=== PATIENT | female | born 2000 | race Caucasian/White ===

== ENCOUNTER 2019-11-07 15:43 | Emergency (ER) | payer OTHER ==
[~2019-11-07] VITALS: Ht 167.6 cm; Wt 81.1 kg
--- NOTE | 2019-11-07 16:42 | REP ---
Clinical: Right shoulder injury . Technique: Internal rotation, external rotation, and Y view. Findings: No acute fracture or dislocation. The acromioclavicular and glenohumeral joints are intact. No periarticular calcifications or degenerative changes are appreciated. Sub acromial space is normal. Surrounding soft tissues are unremarkable. Impression: Normal right shoulder radiographs. Electronically Signed by Rene Navarrete MD 11/07/2019 04:34 P
[2019-11-07] MEDS ORDERED: NAPR-837 PO (18:12)
[2019-11-07 18:16] VITALS: BP 137/72
== END 2019-11-07 18:19 | disposition home or self-care (01) ==
LOC: EDSEX 15:43 → M ED 15:43
DX: S43.51XA Sprain of right acromioclavicular joint, initial encounter (principal); W19.XXXA Unspecified fall, initial encounter; Y92.89 Other specified places as the place of occurrence of the external cause; Y99.0 Civilian activity done for income or pay

== ENCOUNTER → 2021-09-05 | Outpatient (REF) ==
[~2021-09-05] MED LIST: NAPR-837 PO
== END ==
LOC: M PLAIMG 09:41
PROVIDERS: ATTEND Internal Medicine
DX: M25.511 Pain in right shoulder (principal); M25.512 Pain in left shoulder; M54.50 Low back pain, unspecified